=== PATIENT | male | born 1975 | race Native Hawaiian/Other Pacific Islander ===

== ENCOUNTER 2018-07-27 04:45 | Emergency (ER) | payer OTHER ==
[2018-07-27] MEDS ORDERED: SOLU-Medrol IV ONE (05:05)
[2018-07-27] MEDS ORDERED: BENADRYL IV ONE (05:05)
--- NOTE | 2018-07-27 07:15 | Emergency Department Report ---
ED General Adult HPI - General Chief complaint: Allergic Reaction Stated complaint: ALLERGIC REACTION Time Seen by Provider: 07/27/18 07:10 Source: patient Mode of arrival: Ambulatory Limitations: No Limitations - History of Present Illness Initial comments: Since a 42 year old male who has had recurrent episodes of angioedema for more than 4 years. He was evaluated by an digital account supervisor and told he had multiple allergies to trees. He has been taking a beta esther but not an RISA inhibitor for more than 2 years which has been well tolerated. He started this after his first episode of angioedema which generally involves his lips or periorbital area. He has never had any airway problem. He states that the swelling has improved at the time of my encounter. States ate goat meat prior to this episode. -: Gradual, hour(s) Location: face Radiation: non-radiation Severity scale (0 -10): 0 Consistency: now resolved (now improving) Improves with: none Worsens with: none Associated Symptoms: denies other symptoms - Related Data Allergies Allergy/AdvReac Type Severity Reaction Status Date / Time Penicillins Allergy Unknown Verified 07/27/18 04:51 prochlorperazine Allergy Nausea Verified 07/27/18 04:51 [From Compazine] ranitidine [From Zantac] Allergy Shortness Verified 07/27/18 04:51 of Breath ED Review of Systems ROS: Stated complaint: ALLERGIC REACTION Other details as noted in HPI Constitutional: denies: chills, fever Eyes: denies: eye pain, eye discharge, vision change ENT: denies: ear pain, throat pain Respiratory: denies: cough, shortness of breath, wheezing Cardiovascular: denies: chest pain, palpitations Endocrine: no symptoms reported Gastrointestinal: denies: abdominal pain, nausea, diarrhea Genitourinary: denies: urgency, dysuria Musculoskeletal: denies: back pain, joint swelling, arthralgia Skin: denies: rash, lesions Neurological: denies: headache, weakness, paresthesias Psychiatric: denies: anxiety, depression Hematological/Lymphatic: denies: easy bleeding, easy bruising ED Past Medical Hx - Past Medical History Previous Medical History?: Yes Hx Hypertension: Yes Additional medical history: high cholesterol, SVT - Surgical History Past Surgical History?: No - Social History Smoking Status: Never Smoker Substance Use Type: None ED Physical Exam - General Limitations: No Limitations General appearance: alert, in no apparent distress - Head Head exam: Present: atraumatic, normocephalic - Eye Eye exam: Present: normal appearance - ENT ENT exam: Present: normal orophraynx, mucous membranes moist, other (1+ right lower lip edema no other airway swelling) - Neck Neck exam: Present: normal inspection, other. Absent: tenderness, meningismus - Respiratory Respiratory exam: Present: normal lung sounds bilaterally. Absent: respiratory distress - Cardiovascular Cardiovascular Exam: Present: regular rate, normal rhythm. Absent: systolic murmur, diastolic murmur, rubs, gallop - GI/Abdominal GI/Abdominal exam: Present: soft, normal bowel sounds. Absent: distended, tenderness, guarding, rebound, rigid - Rectal Rectal exam: Present: deferred - Extremities Exam Extremities exam: Present: normal inspection - Back Exam Back exam: Present: normal inspection - Neurological Exam Neurological exam: Present: alert, oriented X3, CN II-XII intact. Absent: motor sensory deficit - Psychiatric Psychiatric exam: Present: normal affect, normal mood - Skin Skin exam: Present: warm, dry, intact, normal color. Absent: rash ED Course Vital Signs 07/27/18 07/27/18 04:51 05:28 Temperature 99 F 98.8 F Pulse Rate 104 H 105 H Respiratory 18 23 Rate Blood Pressure 133/87 Blood Pressure 129/88 [Left] O2 Sat by Pulse 96 98 Oximetry Critical care attestation.: If time is entered above; I have spent that time in minutes in the direct care of this critically ill patient, excluding procedure time. ED Disposition Clinical Impression: Angioedema of lips Qualifiers: Encounter type: initial encounter Qualified Code(s): T78.3XXA - Angioneurotic edema, initial encounter Disposition: - TO HOME OR SELFCARE Is pt being admited?: No Does the pt Need Aspirin: No Condition: Stable Instructions: Angioedema (ED) Additional Instructions: Return any increased problem with swallowing. Perhaps you should avoid similar food consumption. Follow-up with your digital account supervisor. Continue Benadryl every 6 hours 50 mg 4 doses. Return to the emergency department any worsening problems. Time of Disposition: 07:16
[2018-07-27 07:21] VITALS: BP 118/81
== END 2018-07-27 07:31 | disposition home or self-care (01) ==
LOC: ED 04:45
DX: T78.3XXA Angioneurotic edema, initial encounter (principal); I10 Essential (primary) hypertension; E78.00 Pure hypercholesterolemia, unspecified; I47.1 Supraventricular tachycardia; Z88.6 Allergy status to analgesic agent; Z88.0 Allergy status to penicillin; Z88.8 Allergy status to other drugs, medicaments and biological substances; X58.XXXA Exposure to other specified factors, initial encounter
CPT/HCPCS: 96374; 96375; 99282; J1200; J2930

== ENCOUNTER 2019-05-21 22:47 | Emergency (ER) | payer OTHER ==
[2019-05-22] MEDS ORDERED: ONDANSETRON 4 MG/2 ML INJ IV ONE (02:28)
[2019-05-22] MEDS ORDERED: ALUM-MAG HYDROXIDE-SIMETHICONE 200-200-20MG/5ML ORAL LIQD 30 ML PO ONE (02:29)
[2019-05-22] MEDS ORDERED: GLUCAGON (HUMAN RECOMBINANT) 1 MG/ML INJ IV ONE (02:29)
--- NOTE | 2019-05-22 03:23 | XRay Report ---
CHEST PA AND LATERAL VIEWS INDICATION: cp. COMPARISON: None FINDINGS: Support devices: None Heart: Normal Lungs/Pleura: No acute pulmonary or pleural findings. IMPRESSION: 1. No significant abnormality. Signer Name: Eugene Hills MD Signed: 05/22/2019 3:19 AM Workstation Name: [id number]
--- NOTE | 2019-05-22 04:45 | Emergency Department Report ---
ED General Adult HPI - General Chief complaint: Chest Pain Stated complaint: CHEST BURNING Time Seen by Provider: 05/22/19 02:23 Source: patient Mode of arrival: Stretcher Limitations: No Limitations - History of Present Illness Initial comments: Patient is a 43-year-old male who is presenting with some burning sensations in the epigastrium. Patient states he ate some rice prior to going to work and felt as though the rice got stuck in his lower esophagus. Patient was having burning some sensation epigastrium and was having nausea and vomiting was unable to swallow. Patient try to drink some water and it came back up spontaneously. Patient has a full feeling at this time. Patient was just started on Pepcid but has not taken his medication. His primary doctor believes he may have GERD. - Related Data Previous Rx's Medication Instructions Recorded Last Taken Type Ondansetron [Zofran Odt] 4 mg PO Q8HR #10 tab.rapdis 05/22/19 Unknown Rx Pantoprazole [Protonix] 40 mg PO QDAY #30 tablet 05/22/19 Unknown Rx Allergies Allergy/AdvReac Type Severity Reaction Status Date / Time Penicillins Allergy Unknown Verified 07/27/18 04:51 prochlorperazine Allergy Nausea Verified 07/27/18 04:51 [From Compazine] ranitidine [From Zantac] Allergy Shortness Verified 07/27/18 04:51 of Breath ED Review of Systems ROS: Stated complaint: CHEST BURNING Other details as noted in HPI Comment: All other systems reviewed and negative ED Past Medical Hx - Past Medical History Previous Medical History?: Yes Hx Hypertension: Yes Hx GERD: Yes Additional medical history: high cholesterol, SVT, Hiatal Hernia - Surgical History Past Surgical History?: No - Social History Smoking Status: Never Smoker Substance Use Type: None - Medications Home Medications: Home Medications Medication Instructions Recorded Confirmed Last Taken Type Ondansetron [Zofran Odt] 4 mg PO Q8HR #10 tab.rapdis 05/22/19 Unknown Rx Pantoprazole [Protonix] 40 mg PO QDAY #30 tablet 05/22/19 Unknown Rx ED Physical Exam - General Limitations: No Limitations General appearance: alert, in no apparent distress - Head Head exam: Present: atraumatic, normocephalic - Eye Eye exam: Present: normal appearance - ENT ENT exam: Present: mucous membranes moist - Neck Neck exam: Present: normal inspection - Respiratory Respiratory exam: Present: normal lung sounds bilaterally. Absent: respiratory distress, wheezes, rales, rhonchi - Cardiovascular Cardiovascular Exam: Present: regular rate, normal rhythm, normal heart sounds. Absent: systolic murmur, diastolic murmur, rubs, gallop - GI/Abdominal GI/Abdominal exam: Present: soft, normal bowel sounds. Absent: distended, tenderness, guarding, rebound - Rectal Rectal exam: Present: deferred - Extremities Exam Extremities exam: Present: normal inspection - Back Exam Back exam: Present: normal inspection - Neurological Exam Neurological exam: Present: alert, oriented X3 - Psychiatric Psychiatric exam: Present: normal affect, normal mood - Skin Skin exam: Present: warm, dry, intact, normal color. Absent: rash ED Course Vital Signs 05/21/19 23:59 Temperature 98.9 F Pulse Rate 98 H Respiratory 18 Rate Blood Pressure 121/84 O2 Sat by Pulse 96 Oximetry ED Medical Decision Making - Medical Decision Making Patient states he was having difficulty swallowing. States he is barely able to swallow his own saliva. Patient given Zofran and glucagon. Patient did have some relief of his symptoms. Patient is able to swallow and passed a by mouth challenge. Patient likely had a bolus of food in his lower esophagus which has cleared at this time. Patient be referred to gastroenterology for probable EGD. Critical care attestation.: If time is entered above; I have spent that time in minutes in the direct care of this critically ill patient, excluding procedure time. ED Disposition Clinical Impression: Esophageal dysphagia, GERD (gastroesophageal reflux disease) Disposition: - TO HOME OR SELFCARE Is pt being admited?: No Does the pt Need Aspirin: No Condition: Stable Additional Instructions: Please keep a soft diet until you areable to see the thermal cutter hand. You likely will need to have an endoscopy to ensure that your lower esophagus is not narrowed since you apparently had some rice that was obstructing your lower esophagus. Referrals: [facility] [Provider Group] - 3-5 Days Time of Disposition: 04:45
[2019-05-22 04:58] VITALS: BP 130/79
== END 2019-05-22 04:55 | disposition home or self-care (01) ==
LOC: ED 22:47
DX: K21.9 Gastro-esophageal reflux disease without esophagitis (principal); I10 Essential (primary) hypertension; Z79.899 Other long term (current) drug therapy; Z88.0 Allergy status to penicillin; Z88.8 Allergy status to other drugs, medicaments and biological substances
CPT/HCPCS: 71046; 96374; 96375; 99284; J1610; J2405